=== PATIENT | male | born 1990 | race Caucasian/White ===

== ENCOUNTER 2018-10-09 13:38 | Emergency (ER) | payer OTHER ==
[~2018-10-09] VITALS: Ht 172.7 cm; Wt 81.8 kg
[2018-10-09 13:52] VITALS: BP 119/79
[2018-10-09] MEDS ORDERED: [UNRECOGNIZED DRUG - CODE] MM (13:54)
[2018-10-09] MEDS ORDERED: IBUPROFEN 100 MG/5 ML SUSPENSION UDCUP PO ONE (15:30)
== END 2018-10-09 15:29 | disposition home or self-care (01) ==
LOC: EMS 13:39
DX: J06.9 Acute upper respiratory infection, unspecified (principal); Z88.2 Allergy status to sulfonamides

== ENCOUNTER 2019-03-17 23:27 | Observation (INO) | payer OTHER ==
[~2019-03-17] VITALS: Ht 172.7 cm; Wt 81.6 kg
[~2019-03-17 23:27] MED LIST: [UNRECOGNIZED DRUG - CODE] MM
[2019-03-18 02:17] VITALS: BP 121/61
== END 2019-03-18 02:08 | disposition home or self-care (01) ==
LOC: EDSEX 23:27 → OBSVTOIN 23:27 → INTOOBSV 23:27 → 4S 23:27
PROVIDERS: ADMIT Obstetrics & Gynecology; ATTEND Obstetrics & Gynecology
DX: O26.852 Spotting complicating pregnancy, second trimester (principal); O26.892 Other specified pregnancy related conditions, second trimester; R10.30 Lower abdominal pain, unspecified; G43.909 Migraine, unspecified, not intractable, without status migrainosus; Z3A.23 23 weeks gestation of pregnancy
CPT/HCPCS: 81002; G0378